=== PATIENT | female | born 1945 | race Two or more races ===

== ENCOUNTER 2021-02-24 08:54 | Day surgery (SDC) | payer OTHER | END 2021-02-24 14:15 | disposition home or self-care (01) | LOC: AMB-ENDOS 08:54 | PROVIDERS: ATTEND Colon & Rectal Surgery | DX: K57.32 Diverticulitis of large intestine without perforation or abscess without bleeding (principal); K64.8 Other hemorrhoids; Z12.11 Encounter for screening for malignant neoplasm of colon; Z20.822 Contact with and (suspected) exposure to COVID-19 ==